=== PATIENT | female | born 1990 | race Caucasian/White ===

== ENCOUNTER 2021-04-10 13:01 | Emergency (ER) | payer SELFPAY ==
[~2021-04-10] VITALS: Ht 182.9 cm; Wt 131.8 kg
[2021-04-10 13:05] VITALS: BP 139/89
--- NOTE | 2021-04-10 13:29 | PHYS DOC ---
Past History Past Surgical History: No Surgical History General Adult EDM: Chief Complaint: FOOT INJURY PAIN HPI: HPI: 31-year-old female presents with left foot injury. The patient was dealing with a 3-year-old who was throwing a temper tantrum when she took a hard lateral step with her left foot. Her foot hit the floor strange and she felt a pop along the lateral aspect. She had immediate pain. It is difficult to bear weight. There is now swelling in this area. Patient denies any previous injuries to the foot. She has no other injuries. Review of Systems: Review of Systems: Constitutional: Denies fever or chills Eyes: Denies change in visual acuity HENT: Denies nasal congestion or sore throat Respiratory: Denies cough or shortness of breath Cardiovascular: Denies chest pain or edema GI: Denies abdominal pain, nausea, vomiting, bloody stools or diarrhea : Denies dysuria Musculoskeletal: Left lateral foot pain Integument: Denies rash Neurologic: Denies headache, focal weakness or sensory changes Endocrine: Denies polyuria or polydipsia Lymphatic: Denies swollen glands Psychiatric: Denies depression or anxiety Allergies: Allergies: Allergies Coded Allergies Type Severity Reaction Last Updated Verified amoxicillin Allergy Unknown 04/10/21 Yes clavulanic acid Allergy Unknown 04/10/21 Yes latex Allergy Unknown 04/10/21 Yes morphine Allergy Unknown 04/10/21 Yes Physical Exam: PE: Constitutional: Well developed, well nourished, no acute distress, non-toxic appearance. [] HENT: Normocephalic, atraumatic, bilateral external ears normal, oropharynx moist, no oral exudates, nose normal. [] Eyes: PERRLA, EOMI, conjunctiva normal, no discharge. [] Neck: Normal range of motion, no tenderness, supple, no stridor. [] Cardiovascular:Heart rate regular rhythm, no murmur [] Lungs & Thorax: Bilateral breath sounds clear to auscultation [] Abdomen: Bowel sounds normal, soft, no tenderness, no masses, no pulsatile masses. [] Skin: Warm, dry, no erythema, no rash. [] Back: No tenderness, no CVA tenderness. [] Extremities: Tenderness, swelling along the lateral foot and the base of the fifth metatarsal [] Neurologic: Alert and oriented X 3, normal motor function, normal sensory function, no focal deficits noted. [] Psychologic: Affect normal, judgement normal, mood normal. [] Current Patient Data: Vital Signs: Vital Signs Date Time Temp Pulse Resp B/P (MAP) Pulse Ox O2 Delivery O2 Flow Rate FiO2 04/10/21 13:05 97.9 79 20 139/89 98 Room Air EKG: EKG: [] Radiology/Procedures: Radiology/Procedures: [] Impressions: EXAM: Left foot, 3 views. HISTORY: Popping when stepping wrong. COMPARISON: None. FINDINGS: 3 views of the left foot are obtained. There is a nondisplaced fracture involving the proximal fifth metatarsal. There is a corticated ossicle along the superior aspect of the navicular bone, likely due to sequela of remote injury. There is no foreign body. IMPRESSION: Nondisplaced fifth metatarsal fracture. Electronically signed by: Yenny Yokr MD (04/10/2021 1:37 PM) [id number] DICTATED AND SIGNED BY: YENNY YORK MD DATE: 04/10/21 1336 CC: CRISTINA MELTON DO; PCP,NO ~MTH0 0 Heart Score: C/O Chest Pain: N/A Risk Factors: Risk Factors: DM, Current or recent (<one month) smoker, HTN, HLP, family history of CAD, obesity. Risk Scores: Score 0 - 3: 2.5% MACE over next 6 weeks - Discharge Home Score 4 - 6: 20.3% MACE over next 6 weeks - Admit for Clinical Observation Score 7 - 10: 72.7% MACE over next 6 weeks - Early Invasive Strategies Course & Med Decision Making: Course & Med Decision Making Pertinent Labs and Imaging studies reviewed. (See chart for details) The patient has a proximal fifth metatarsal fracture. We will wrap the foot for comfort and place her in an orthopedic shoe. I advised that she follow-up with orthopedics for definitive treatment. She is stable for discharge at this time. [] Dragon Disclaimer: Tammy Disclaimer: This electronic medical record was generated, in whole or in part, using a voice recognition dictation system. Departure Departure: Impression: Primary Impression: Closed nondisplaced fracture of fifth left metatarsal bone Qualified Codes: S92.355A - Nondisplaced fracture of fifth metatarsal bone, left foot, initial encounter for closed fracture Disposition: HOME / SELF CARE / HOMELESS Condition: STABLE Referrals: PCP,NO (PCP) Patient Instructions: Metatarsal Fracture, Undisplaced CRISTINA MELTON DO Apr 10, 2021 13:29
--- NOTE | 2021-04-10 13:39 | RAD ---
EXAM: Left foot, 3 views. HISTORY: Popping when stepping wrong. COMPARISON: None. FINDINGS: 3 views of the left foot are obtained. There is a nondisplaced fracture involving the proxi mal fifth metatarsal. There is a corticated ossicle along the superior aspect of the navicular bone, likely due to sequela of remote injury. There is no foreign body. IMPRESSION: Nondisplaced fifth metatarsal fracture. Electronically signed by: Yenny York MD (04/10/2021 1:37 PM) [id number]
[2021-04-10] MEDS ORDERED: HYDR-2759 PO (13:49)
== END 2021-04-10 14:04 | disposition home or self-care (01) ==
LOC: ER 13:01
DX: S92.355A Nondisplaced fracture of fifth metatarsal bone, left foot, initial encounter for closed fracture (principal); Z88.1 Allergy status to other antibiotic agents; Z88.5 Allergy status to narcotic agent; Z91.040 Latex allergy status; X50.9XXA Other and unspecified overexertion or strenuous movements or postures, initial encounter; Y93.89 Activity, other specified; Y92.89 Other specified places as the place of occurrence of the external cause; Y99.8 Other external cause status
CPT/HCPCS: 73630; 99283